=== PATIENT | male | born 2005 | race African-American/Black ===

== ENCOUNTER 2024-02-15 21:29 | Emergency (ER) | payer SELFPAY ==
[2024-02-15] MEDS ORDERED: Ondansetron PF 4 MG/2 ML Vial ONE (22:36)
[2024-02-15] MEDS ORDERED: Ketorolac Tromethamine 30 MG (1 mL) VIAL ONE (22:37)
== END 2024-02-15 22:47 | disposition left against medical advice (07) ==
LOC: CSHERS 21:29
DX: R11.2 Nausea with vomiting, unspecified (principal); R19.7 Diarrhea, unspecified; F17.210 Nicotine dependence, cigarettes, uncomplicated; Z53.21 Procedure and treatment not carried out due to patient leaving prior to being seen by health care provider
CPT/HCPCS: 93005; J1885; J2405